=== PATIENT | female | born 1970 | race Caucasian/White ===

== ENCOUNTER 2017-10-25 12:37 | Emergency (ER) | payer BC ==
[2017-10-25 13:23] VITALS: RESP 18; TEMP 98
[2017-10-25] MEDS ORDERED: SODIUM CHLORIDE 0.9% 500 ML IV STA (13:34)
--- NOTE | 2017-10-25 14:18 | ED ---
General Adult HPI - General Chief complaint: Arrhythmia/Palpitations Stated complaint: Chest pain Time Seen by Provider: 10/25/17 13:34 Source: patient, RN notes reviewed, old records reviewed Mode of arrival: ambulatory Limitations: no limitations - History of Present Illness Initial comments: 47-year-old female history of SVT presenting for evaluation of palpitations. Patient states she was in SVT for approximately 2 hours while at work this morning. She does take metoprolol 25 mg twice daily. She is instructed take an additional tablet as needed for palpitations. She did not take this medication because she felt it may drop her blood pressure too low while she was at work. She did experience some left-sided chest pain with this episode. No nausea vomiting. No diaphoresis. No preceding symptoms. Patient is chest pain-free at the time of my evaluation. - Related Data Home Medications Medication Instructions Recorded Confirmed Gabapentin [Neurontin] 1,600 mg PO BID 01/25/14 10/25/17 Meclizine [Antivert] 12.5 mg PO BID 03/12/14 10/25/17 clomiPRAMINE [Anafranil] 100 mg PO HS 04/12/14 10/25/17 ARIPiprazole [Abilify] 10 mg PO DAILY 10/25/17 10/25/17 Metoprolol Succinate [Toprol XL] 25 mg PO BID 10/25/17 10/25/17 Ranitidine HCl [Zantac] 150 mg PO BID 10/25/17 10/25/17 Simvastatin [Zocor] 20 mg PO HS 10/25/17 10/25/17 Allergies Allergy/AdvReac Type Severity Reaction Status Date / Time Penicillins Allergy Rash/Hives Verified 10/25/17 13:57 codeine AdvReac Nausea & Verified 10/25/17 13:57 Vomiting escitalopram oxalate AdvReac headache Verified 10/25/17 13:57 [From Lexapro] sertraline HCl [From Zoloft] AdvReac Nausea & Verified 10/25/17 13:57 Vomiting venlafaxine HCl AdvReac headache Verified 10/25/17 13:57 [From Effexor] Review of Systems ROS Statement: Those systems with pertinent positive or pertinent negative responses have been documented in the HPI. ROS Other: All systems not noted in ROS Statement are negative. Past Medical History Past Medical History: Hyperlipidemia Additional Past Medical History / Comment(s): SVT History of Any Multi-Drug Resistant Organisms: None Reported Past Surgical History: Bariatric Surgery, Section, Cholecystectomy, Orthopedic Surgery, Tonsillectomy, Tubal Ligation Additional Past Surgical History / Comment(s): Gastroc. release in lt calf 2010 , sleeve gatrectomy 06/2014, right thumb tendon reconstruction Past Anesthesia/Blood Transfusion Reactions: No Reported Reaction Past Psychological History: Anxiety, Panic Disorder Smoking Status: Current every day smoker Past Alcohol Use History: Occasional Past Drug Use History: None Reported - Past Family History Mother Family Medical History: Myocardial Infarction ([place]) Father Family Medical History: No Reported History General Exam Limitations: no limitations General appearance: alert, in no apparent distress Head exam: Present: atraumatic, normocephalic Eye exam: Present: normal appearance, PERRL, EOMI ENT exam: Present: normal exam Neck exam: Present: normal inspection. Absent: tenderness, meningismus Respiratory exam: Present: normal lung sounds bilaterally. Absent: respiratory distress, wheezes Cardiovascular Exam: Present: regular rate, normal rhythm GI/Abdominal exam: Present: soft. Absent: distended, tenderness Extremities exam: Present: normal inspection, normal capillary refill. Absent: pedal edema, calf tenderness Neurological exam: Present: alert, oriented X3, CN II-XII intact. Absent: motor sensory deficit Psychiatric exam: Present: normal affect, normal mood Skin exam: Present: warm, dry, intact. Absent: cyanosis, diaphoretic Course Vital Signs 10/25/17 10/25/17 13:19 14:41 Temperature 98 F Pulse Rate 90 84 Respiratory 18 18 Rate Blood Pressure 106/70 112/55 O2 Sat by Pulse 100 96 Oximetry EKG Findings - EKG Comments: EKG Findings:: EKG normal sinus rhythm, ventricular rate 92, WI interval 134, QRS duration 86, QTC 442 Medical Decision Making - Medical Decision Making 47-year-old female presenting with multiple episodes of SVT throughout the day today. She does have known history of SVT and is on metoprolol. She is in normal sinus rhythm at the time of her initial EKG and while on the monitor in the emergency department. Workup is negative including CBC, CMP, negative troponin chest x-ray negative for any acute cardiopulmonary disease. Patient describes some left-sided chest pain with this episode. She is chest pain-free at the time my evaluation. She is offered observation for cardiology consultation and serial enzymes. She declines she prefers outpatient follow- up. She does have an appointment in 4 days she will maintain his appointment. Return with worsening or changing symptoms. - Lab Data Result diagrams: 10/25/17 14:00 10/25/17 14:00 Lab Results 10/25/17 10/25/17 10/25/17 Range/Units 14:00 14:00 14:00 WBC 9.1 (3.8-10.6) k/uL RBC 4.48 (3.80-5.40) m/uL Hgb 12.6 (11.4-16.0) gm/dL Hct 40.0 (34.0-46.0) % MCV 89.3 (80.0-100.0) fL MCH 28.1 (25.0-35.0) pg MCHC 31.5 (31.0-37.0) g/dL RDW 14.6 (11.5-15.5) % Plt Count 358 (150-450) k/uL Neutrophils % 56 % Lymphocytes % 33 % Monocytes % 7 % Eosinophils % 0 % Basophils % 0 % Neutrophils # 5.1 (1.3-7.7) k/uL Lymphocytes # 3.0 (1.0-4.8) k/uL Monocytes # 0.6 (0-1.0) k/uL Eosinophils # 0.0 (0-0.7) k/uL Basophils # 0.0 (0-0.2) k/uL PT (9.0-12.0) sec INR (<1.2) APTT (22.0-30.0) sec Sodium 137 (137-145) mmol/L Potassium 4.2 (3.5-5.1) mmol/L Chloride 106 (98-107) mmol/L Carbon Dioxide 21 L (22-30) mmol/L Anion Gap 10 mmol/L BUN 8 (7-17) mg/dL Creatinine 0.60 (0.52-1.04) mg/dL Est GFR (CKD-EPI)AfAm >90 (>60 ml/min/1.73 sqM) Est GFR (CKD-EPI)NonAf >90 (>60 ml/min/1.73 sqM) Glucose 147 H (74-99) mg/dL Calcium 9.5 (8.4-10.2) mg/dL Magnesium 1.6 (1.6-2.3) mg/dL Total Bilirubin 0.3 (0.2-1.3) mg/dL AST 33 (14-36) U/L ALT 28 (9-52) U/L Alkaline Phosphatase 58 (38-126) U/L Total Creatine Kinase 125 (30-135) U/L CK-MB (CK-2) 1.1 (0.0-2.4) ng/mL CK-MB (CK-2) Rel Index 0.9 Troponin I <0.012 (0.000-0.034) ng/mL Total Protein 6.7 (6.3-8.2) g/dL Albumin 4.2 (3.5-5.0) g/dL Urine Opiates Screen (NotDetected) Ur Oxycodone Screen (NotDetected) Urine Methadone Screen (NotDetected) Ur Propoxyphene Screen (NotDetected) Ur Barbiturates Screen (NotDetected) U Tricyclic Antidepress (NotDetected) Ur Phencyclidine Scrn (NotDetected) Ur Amphetamines Screen (NotDetected) U Methamphetamines Scrn (NotDetected) U Benzodiazepines Scrn (NotDetected) Urine Cocaine Screen (NotDetected) U Marijuana (THC) Screen (NotDetected) 10/25/17 10/25/17 Range/Units 14:00 14:00 WBC (3.8-10.6) k/uL RBC (3.80-5.40) m/uL Hgb (11.4-16.0) gm/dL Hct (34.0-46.0) % MCV (80.0-100.0) fL MCH (25.0-35.0) pg MCHC (31.0-37.0) g/dL RDW (11.5-15.5) % Plt Count (150-450) k/uL Neutrophils % % Lymphocytes % % Monocytes % % Eosinophils % % Basophils % % Neutrophils # (1.3-7.7) k/uL Lymphocytes # (1.0-4.8) k/uL Monocytes # (0-1.0) k/uL Eosinophils # (0-0.7) k/uL Basophils # (0-0.2) k/uL PT 9.5 (9.0-12.0) sec INR 1.0 (<1.2) APTT 24.0 (22.0-30.0) sec Sodium (137-145) mmol/L Potassium (3.5-5.1) mmol/L Chloride (98-107) mmol/L Carbon Dioxide (22-30) mmol/L Anion Gap mmol/L BUN (7-17) mg/dL Creatinine (0.52-1.04) mg/dL Est GFR (CKD-EPI)AfAm (>60 ml/min/1.73 sqM) Est GFR (CKD-EPI)NonAf (>60 ml/min/1.73 sqM) Glucose (74-99) mg/dL Calcium (8.4-10.2) mg/dL Magnesium (1.6-2.3) mg/dL Total Bilirubin (0.2-1.3) mg/dL AST (14-36) U/L ALT (9-52) U/L Alkaline Phosphatase (38-126) U/L Total Creatine Kinase (30-135) U/L CK-MB (CK-2) (0.0-2.4) ng/mL CK-MB (CK-2) Rel Index Troponin I (0.000-0.034) ng/mL Total Protein (6.3-8.2) g/dL Albumin (3.5-5.0) g/dL Urine Opiates Screen Not Detected (NotDetected) Ur Oxycodone Screen Not Detected (NotDetected) Urine Methadone Screen Not Detected (NotDetected) Ur Propoxyphene Screen Not Detected (NotDetected) Ur Barbiturates Screen Not Detected (NotDetected) U Tricyclic Antidepress Not Detected (NotDetected) Ur Phencyclidine Scrn Not Detected (NotDetected) Ur Amphetamines Screen Not Detected (NotDetected) U Methamphetamines Scrn Not Detected (NotDetected) U Benzodiazepines Scrn Not Detected (NotDetected) Urine Cocaine Screen Not Detected (NotDetected) U Marijuana (THC) Screen Not Detected (NotDetected) Disposition Clinical Impression: Supraventricular tachycardia Disposition: HOME SELF-CARE Condition: Good Instructions: Palpitations (ED), Supraventricular Tachycardia (ED) Is patient prescribed a controlled substance at d/c from ED?: No Referrals: Desirae Escamilla MD [Primary Care Provider] - 1-2 days Time of Disposition: 15:53
--- NOTE | 2017-10-25 14:21 | XR ---
EXAMINATION TYPE: XR chest 2V DATE OF EXAM: 10/25/2017 COMPARISON: Prior chest x-ray 06/06/2014 HISTORY: Dysrhythmia, chest pain TECHNIQUE: Frontal and lateral views of the chest are obtained. FINDINGS: There is no focal air space opacity, pleural effusion, or pneumothorax seen. The cardiac silhouette size is within normal limits. The osseous structures are intact. There are overlying car diac leads. Patient is rotated. Prominent lung volumes suggests possible underlying COPD. There is a prominent epicardial fat pad. IMPRESSION: No acute cardiopulmonary process.
[2017-10-25 14:26] LABS: Basophils % (A) 0 %; Eosinophils % (A) 0 %; HGB 12.6 gm/dL (11.4-16.0); Lymphocytes % (A) 33 %; MCH 28.1 pg (25.0-35.0); MCHC 31.5 g/dL (31.0-37.0); MCV 89.3 fL (80.0-100.0); Mean Platelet Volume 6.5; Monocytes # (A) 0.6 k/uL (0-1.0); Monocytes % (A) 7 %; Neutrophils # (A) 5.1 k/uL (1.3-7.7); Neutrophils % (A) 56 %; Platelet Count 358 k/uL (150-450); RBC 4.48 m/uL (3.80-5.40); RDW 14.6 % (11.5-15.5); WBC 9.1 k/uL (3.8-10.6)
[2017-10-25 14:41] LABS: Prothrombin Time 9.5 sec (9.0-12.0)
[2017-10-25 14:45] LABS: ALT 28 U/L (9-52); AST 33 U/L (14-36); Albumin 4.2 g/dL (3.5-5.0); Alkaline Phosphatase 58 U/L (38-126); Anion Gap 10 mmol/L; Blood Urea Nitrogen 8 mg/dL (7-17); Calcium 9.5 mg/dL (8.4-10.2); Carbon Dioxide 21 mmol/L (22-30); Chloride 106 mmol/L (98-107); Glucose 147 mg/dL (74-99); Magnesium 1.6 mg/dL (1.6-2.3); Potassium 4.2 mmol/L (3.5-5.1); Sodium 137 mmol/L (137-145); Total Bilirubin 0.3 mg/dL (0.2-1.3); Total Protein 6.7 g/dL (6.3-8.2)
[2017-10-25 14:50] LABS: Creatine Kinase 125 U/L (30-135)
[2017-10-25 15:02] LABS: Creatine Kinase MB 1.1 ng/mL (0.0-2.4); Troponin I <0.012 ng/mL (0.000-0.034)
[2017-10-25 15:14] LABS: Amphetamine Screen,Urine Not Detected (NotDetected); Barbiturate Screen,Urine Not Detected (NotDetected); Benzodiazepines Screen,Urine Not Detected (NotDetected); Cocaine Screen,Urine Not Detected (NotDetected); Methadone Screen, Urine Not Detected (NotDetected); Opiate Screen,Urine Not Detected (NotDetected); Oxycodone Screen, Urine Not Detected (NotDetected); Phencyclidine Screen,Urine Not Detected (NotDetected); Tricyclic Antidepressant,Urine Not Detected (NotDetected); Urn Cannabinoid Scrn Not Detected (NotDetected)
[2017-10-25 16:06] VITALS: BP 126/87; PULSE 89
== END 2017-10-25 16:05 | disposition home or self-care (01) ==
LOC: EC 12:37
DX: I47.1 Supraventricular tachycardia (principal); E78.5 Hyperlipidemia, unspecified; F17.200 Nicotine dependence, unspecified, uncomplicated; Z82.49 Family history of ischemic heart disease and other diseases of the circulatory system; Z79.899 Other long term (current) drug therapy; Z88.0 Allergy status to penicillin; Z88.5 Allergy status to narcotic agent; Z88.8 Allergy status to other drugs, medicaments and biological substances; Z53.29 Procedure and treatment not carried out because of patient's decision for other reasons
CPT/HCPCS: 36415; 71046; 80053; 80306; 82550; 82553; 83735; 84484; 85025; 85610; 85730; 93005; 96360; 96361; 99285

== ENCOUNTER 2018-03-10 08:44 | Emergency (ER) | payer BC, OTHER ==
[2018-03-10 08:50] VITALS: RESP 18; TEMP 97.9
[2018-03-10] MEDS ORDERED: ASPIRIN 81 MG PO STA (08:52)
--- NOTE | 2018-03-10 09:17 | ED ---
Chest Pain HPI - General Chief Complaint: Chest Pain Stated Complaint: chest pain Time Seen by Provider: 03/10/18 08:52 Source: patient, RN notes reviewed Mode of arrival: ambulatory Limitations: no limitations - History of Present Illness Initial Comments: This a 47-year-old female sent emergency Department chief complaint of chest pressure, squeezing sensation. Patient states it started this morning. Patient states when she takes a deep inspiration she feels some squeezing her chest. Patient states that is not at rest. Patient denies any recent blood clots, PEs. Patient denies any recent long distance traveling. She states she has a history of SVT takes metoprolol daily prescribed by her PCP. Patient states she has seen cardiology in the past. She denies any headache, dizziness , nausea, vomiting, arm pain, jaw pain. She has no history of hyperlipidemia, diabetes, prior cardiac stenting. Patient states that she does have some family history. - Related Data Home Medications Medication Instructions Recorded Confirmed Gabapentin [Neurontin] 1,600 mg PO BID 01/25/14 03/10/18 Meclizine [Antivert] 12.5 mg PO DAILY 03/12/14 03/10/18 Metoprolol Succinate [Toprol XL] 25 mg PO DAILY 10/25/17 03/10/18 ARIPiprazole [Abilify] 20 mg PO DAILY 03/10/18 03/10/18 Allergies Allergy/AdvReac Type Severity Reaction Status Date / Time Penicillins Allergy Rash/Hives Verified 03/10/18 10:02 codeine AdvReac Nausea & Verified 03/10/18 10:02 Vomiting escitalopram oxalate AdvReac headache Verified 03/10/18 10:02 [From Lexapro] sertraline HCl [From Zoloft] AdvReac Nausea & Verified 03/10/18 10:02 Vomiting venlafaxine HCl AdvReac headache Verified 03/10/18 10:02 [From Effexor] Review of Systems ROS Statement: Those systems with pertinent positive or pertinent negative responses have been documented in the HPI. ROS Other: All systems not noted in ROS Statement are negative. EKG Findings - EKG Comments: EKG Findings:: EKG performed at 9:17 normal sinus rhythm with rate of 80 ID 118 QRS 80 QT/QTC 382/440 Past Medical History Past Medical History: Hyperlipidemia Additional Past Medical History / Comment(s): SVT History of Any Multi-Drug Resistant Organisms: None Reported Past Surgical History: Bariatric Surgery, Section, Cholecystectomy, Orthopedic Surgery, Tonsillectomy, Tubal Ligation Additional Past Surgical History / Comment(s): Gastroc. release in lt calf 2010 , sleeve gatrectomy 06/2014, right thumb tendon reconstruction Past Anesthesia/Blood Transfusion Reactions: No Reported Reaction Past Psychological History: Anxiety, Panic Disorder Smoking Status: Current every day smoker Past Alcohol Use History: Occasional Past Drug Use History: None Reported - Past Family History Mother Family Medical History: Myocardial Infarction ([place]) Father Family Medical History: No Reported History General Exam Limitations: no limitations General appearance: alert, in no apparent distress Head exam: Present: atraumatic, normocephalic, normal inspection Neck exam: Present: normal inspection, full ROM. Absent: tenderness, meningismus, lymphadenopathy Respiratory exam: Present: normal lung sounds bilaterally. Absent: respiratory distress, wheezes, rales, rhonchi, stridor Cardiovascular Exam: Present: regular rate, normal rhythm, normal heart sounds. Absent: systolic murmur, diastolic murmur, rubs, gallop, clicks GI/Abdominal exam: Present: soft, normal bowel sounds. Absent: distended, tenderness, guarding, rebound, rigid Neurological exam: Present: alert, oriented X3, CN II-XII intact Skin exam: Present: warm, dry, intact, normal color. 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 Pain started this morning worse with deep inspiration. Patient lab work and EKG and chest x-ray. Remaining is unremarkable. Patient negative d-dimer. EKG was normal sinus rhythm. Did explain that labs and EKG were normal at this time though patient should be admitted for cardiac rule out including repeat troponin, cardiology evaluation. Patient refuses admission understands that she may have some underlying cardiac disease. Patient does understand and states that she will not be admitted. Disposition Clinical Impression: Atypical chest pain, Pleurisy Disposition: HOME SELF-CARE Condition: Stable Instructions: Chest Pain (ED) Additional Instructions: Please return to the Emergency Department if symptoms worsen or any other concerns. Is patient prescribed a controlled substance at d/c from ED?: No Referrals: Desirae Escamilla MD [Primary Care Provider] - 1-2 days Time of Disposition: 11:17
[2018-03-10 09:30] VITALS: PULSE 82
--- NOTE | 2018-03-10 09:47 | XR ---
EXAMINATION TYPE: XR chest 2V DATE OF EXAM: 03/10/2018 COMPARISON: 10/25/2017 TECHNIQUE: PA and lateral views submitted. HISTORY: Chest pain FINDINGS: The lungs are clear and there is no pneumothorax, pleural effusion, or focal pneumonia. Prominent p ericardial fat pad on the right noted. No overt failure. Arthropathy of the shoulders. Hyperinflation suggests COPD. Surgical clips in the abdomen noted. Hypertrophic change of the vertebral column. IMPRESSION: 1. No acute process.
[2018-03-10 10:14] LABS: Basophils % (A) 1 %; Eosinophils # (A) 0.2 k/uL (0-0.7); Eosinophils % (A) 2 %; HCT 37.4 % (34.0-46.0); HGB 12.1 gm/dL (11.4-16.0); Lymphocytes # (A) 2.8 k/uL (1.0-4.8); Lymphocytes % (A) 37 %; MCH 28.4 pg (25.0-35.0); MCHC 32.3 g/dL (31.0-37.0); Mean Platelet Volume 6.3; Monocytes # (A) 0.5 k/uL (0-1.0); Monocytes % (A) 7 %; Neutrophils # (A) 3.9 k/uL (1.3-7.7); Neutrophils % (A) 51 %; Platelet Count 383 k/uL (150-450); RBC 4.24 m/uL (3.80-5.40); RDW 14.9 % (11.5-15.5); WBC 7.6 k/uL (3.8-10.6)
[2018-03-10 10:25] LABS: ALT 24 U/L (9-52); AST 28 U/L (14-36); Albumin 3.7 g/dL (3.5-5.0); Alkaline Phosphatase 57 U/L (38-126); Anion Gap 5 mmol/L; Blood Urea Nitrogen 3 mg/dL (7-17); Carbon Dioxide 29 mmol/L (22-30); Chloride 101 mmol/L (98-107); Glucose 79 mg/dL (74-99); Magnesium 1.8 mg/dL (1.6-2.3); Potassium 4.8 mmol/L (3.5-5.1); Sodium 135 mmol/L (137-145); Total Bilirubin 0.3 mg/dL (0.2-1.3); Total Protein 6.3 g/dL (6.3-8.2)
[2018-03-10 10:31] LABS: D-Dimer 0.3 mg/L FEU (<0.60); INR 0.9 (<1.2); Partial Thromboplastin Time 25.3 sec (22.0-30.0); Prothrombin Time 9.4 sec (9.0-12.0)
[2018-03-10 10:54] LABS: Creatine Kinase 107 U/L (30-135)
[2018-03-10 11:07] LABS: Creatine Kinase MB 1.7 ng/mL (0.0-2.4); Troponin I <0.012 ng/mL (0.000-0.034)
[2018-03-10 11:38] VITALS: BP 124/78
== END 2018-03-10 11:24 | disposition home or self-care (01) ==
LOC: EC 08:44
DX: R07.89 Other chest pain (principal); R09.1 Pleurisy; F41.0 Panic disorder [episodic paroxysmal anxiety]; F17.200 Nicotine dependence, unspecified, uncomplicated; Z98.84 Bariatric surgery status; Z79.899 Other long term (current) drug therapy; Z88.0 Allergy status to penicillin; Z88.5 Allergy status to narcotic agent; Z88.8 Allergy status to other drugs, medicaments and biological substances
CPT/HCPCS: 36415; 71046; 80053; 82550; 82553; 83735; 84484; 85025; 85379; 85610; 85730; 93005; 99285

== ENCOUNTER 2019-01-25 09:57 | Emergency (ER) | payer BC, OTHER ==
--- NOTE | 2019-01-25 11:22 | ED ---
Chest Pain HPI - General Chief Complaint: Chest Pain Stated Complaint: chest pain Time Seen by Provider: 01/25/19 10:20 Source: patient, RN notes reviewed Mode of arrival: ambulatory Limitations: no limitations - History of Present Illness Initial Comments: This is a 48-year-old female who presents with complaints of chest pain is started this morning. She states it was sharp in nature 09/28 severity now is about 0 she points her left chest wall. He states it started about 6:45 AM no new lifting no new symptoms like cough fevers chills sweats. She does have a history of SVT she did monitor her heart rate was going between 95 bpm and 130 bpm. Currently no other modifying factor she did however state that she did feel some irregularity in her heart beats. MD Complaint: chest pain - Related Data Home Medications Medication Instructions Recorded Confirmed Gabapentin [Neurontin] 800 mg PO TID 01/25/14 01/25/19 Meclizine [Antivert] 12.5 mg PO DAILY 03/12/14 01/25/19 Metoprolol Succinate [Toprol XL] 25 mg PO DAILY 10/25/17 01/25/19 ARIPiprazole [Abilify] 10 mg PO DAILY 01/25/19 01/25/19 Ferrous Sulfate [Iron (65 MG 325 mg PO DAILY 01/25/19 01/25/19 Elemental)] Simvastatin [Zocor] 20 mg PO HS 01/25/19 01/25/19 clomiPRAMINE [Anafranil] 100 mg PO HS 01/25/19 01/25/19 Previous Rx's Medication Instructions Recorded Ibuprofen 800 mg PO Q6HR PRN #20 tablet 01/25/19 Allergies Allergy/AdvReac Type Severity Reaction Status Date / Time Penicillins Allergy Rash/Hives Verified 01/25/19 11:49 codeine AdvReac Nausea & Verified 01/25/19 11:49 Vomiting escitalopram oxalate AdvReac headache Verified 01/25/19 11:49 [From Lexapro] sertraline HCl [From Zoloft] AdvReac Nausea & Verified 01/25/19 11:49 Vomiting venlafaxine HCl AdvReac headache Verified 01/25/19 11:49 [From Effexor] Review of Systems ROS Statement: Those systems with pertinent positive or pertinent negative responses have been documented in the HPI. ROS Other: All systems not noted in ROS Statement are negative. EKG Findings - EKG Results: EKG: interpreted by CARLYND, sinus rhythm (Normal sinus rhythm a 77 appear interval 1:30 QRS duration 78 QT since QTC 380/[address]-T wave changes) Past Medical History Past Medical History: Hyperlipidemia Additional Past Medical History / Comment(s): SVT History of Any Multi-Drug Resistant Organisms: None Reported Past Surgical History: Bariatric Surgery, Section, Cholecystectomy, Orthopedic Surgery, Tonsillectomy, Tubal Ligation Additional Past Surgical History / Comment(s): Gastroc. release in lt calf 2010, sleeve gatrectomy 06/2014, right thumb tendon reconstruction Past Anesthesia/Blood Transfusion Reactions: No Reported Reaction Past Psychological History: Anxiety, Panic Disorder Smoking Status: Current every day smoker Past Alcohol Use History: Occasional Past Drug Use History: Marijuana - Past Family History Mother Family Medical History: Myocardial Infarction ([place]) Father Family Medical History: No Reported History General Exam - General Exam Comments Initial Comments: This is a well-developed well-nourished awake alert oriented 3 female Limitations: no limitations General appearance: alert, in no apparent distress Head exam: Present: atraumatic, normocephalic, normal inspection Eye exam: Present: normal appearance, PERRL, EOMI. Absent: scleral icterus, conjunctival injection, periorbital swelling ENT exam: Present: normal exam, mucous membranes moist Neck exam: Present: normal inspection. Absent: tenderness, meningismus, lymphadenopathy Respiratory exam: Present: normal lung sounds bilaterally, chest wall tenderness (Tenderness palpation along the left costochondral costal sternal margins no step-off or crepitation). Absent: respiratory distress, wheezes, rales, rhonchi, stridor Cardiovascular Exam: Present: regular rate, normal rhythm, normal heart sounds. Absent: systolic murmur, diastolic murmur, rubs, gallop, clicks GI/Abdominal exam: Present: soft, normal bowel sounds. Absent: distended, tenderness, guarding, rebound, rigid Extremities exam: Present: normal inspection, full ROM, normal capillary refill. Absent: tenderness, pedal edema, joint swelling, calf tenderness Back exam: Present: normal inspection Neurological exam: Present: alert, oriented X3, CN II-XII intact Psychiatric exam: Present: normal affect, normal mood Skin exam: Present: warm, dry, intact, normal color. Absent: rash Course Vital Signs 01/25/19 01/25/19 10:02 12:12 Temperature 97.8 F Pulse Rate 88 89 Respiratory 18 16 Rate Blood Pressure 147/89 129/58 O2 Sat by Pulse 100 100 Oximetry Procedures - Smoking Cessation Time Spent Discussing Smoking Cessation w/Patient (Minutes): 3 Patient Acknowledges Need for Cessation: Yes Chest Pain MDM - MDM Reevaluation patient she has no further pain x-rays are negative workup thus far is negative for acute findings the presentation is consistent with chest wall pain/costochondritis. She does states she's had this before. Patient will be discharged on nonsteroidals is a follow-up with her doctor as needed and return when necessary she was encouraged to stop smoking I did fill out a return to work slip for tomorrow. Disposition Clinical Impression: Costochondritis, Chest wall syndrome, Smoking Disposition: HOME SELF-CARE Condition: Good Instructions (If sedation given, give patient instructions): Costochondritis (ED) Additional Instructions: Medication prescriptions sent to your preferred [facility] pharmacy Prescriptions: Ibuprofen 800 mg PO Q6HR PRN #20 tablet PRN Reason: Pain Is patient prescribed a controlled substance at d/c from ED?: No Referrals: Desirae Escamilla MD [Primary Care Provider] - 1-2 days
--- NOTE | 2019-01-25 11:23 | XR ---
EXAMINATION TYPE: XR chest 2V DATE OF EXAM: 01/25/2019 COMPARISON: 03/10/2018 HISTORY: Chest pain TECHNIQUE: Frontal and lateral views of the chest are obtained. FINDINGS: There is no focal air space opacity, pleural effusion, or pneumothorax seen. The cardiac silhouette size is within normal limits. The osseous structures are intact. Minimal multilevel dege nerative changes of the spine. IMPRESSION: No acute cardiopulmonary process.
[2019-01-25 11:41] LABS: Anisocytosis Slight; Basophils # (A) 0.1 k/uL (0-0.2); Basophils % (A) 1 %; Eosinophils # (A) 0.2 k/uL (0-0.7); Eosinophils % (A) 3 %; HCT 38.7 % (34.0-46.0); HGB 12.5 gm/dL (11.4-16.0); Lymphocytes # (A) 2.8 k/uL (1.0-4.8); Lymphocytes % (A) 41 %; MCH 28.2 pg (25.0-35.0); MCHC 32.3 g/dL (31.0-37.0); MCV 87.3 fL (80.0-100.0); Mean Platelet Volume 5.9; Monocytes # (A) 0.3 k/uL (0-1.0); Monocytes % (A) 5 %; Neutrophils # (A) 3.3 k/uL (1.3-7.7); Neutrophils % (A) 48 %; Platelet Count 342 k/uL (150-450); RBC 4.43 m/uL (3.80-5.40); RDW 17.7 % (11.5-15.5); WBC 6.8 k/uL (3.8-10.6)
[2019-01-25 11:57] LABS: D-Dimer 0.26 mg/L FEU (<0.60); INR 0.9 (<1.2); Partial Thromboplastin Time 25.1 sec (22.0-30.0); Prothrombin Time 9.5 sec (9.0-12.0)
[2019-01-25 11:59] LABS: ALT 30 U/L (9-52); AST 29 U/L (14-36); African American GFR (CKD) >90 (>60 ml/min/1.73 sqM); Albumin 4.3 g/dL (3.5-5.0); Alkaline Phosphatase 69 U/L (38-126); Blood Urea Nitrogen 6 mg/dL (7-17); Calcium 9.8 mg/dL (8.4-10.2); Carbon Dioxide 29 mmol/L (22-30); Glucose 89 mg/dL (74-99); Total Bilirubin 0.3 mg/dL (0.2-1.3); Total Protein 6.8 g/dL (6.3-8.2)
[2019-01-25 12:02] LABS: Anion Gap 7 mmol/L; Chloride 100 mmol/L (98-107); Creatine Kinase 128 U/L (30-135); Magnesium 1.7 mg/dL (1.6-2.3); Potassium 4.7 mmol/L (3.5-5.1); Sodium 136 mmol/L (137-145)
[2019-01-25 13:25] VITALS: BP 128/72; PULSE 72; RESP 18; TEMP 98.3
== END 2019-01-25 13:35 | disposition home or self-care (01) ==
LOC: EC 09:57
DX: M94.0 Chondrocostal junction syndrome [Tietze] (principal); Z71.6 Tobacco abuse counseling; E78.5 Hyperlipidemia, unspecified; F41.0 Panic disorder [episodic paroxysmal anxiety]; F17.200 Nicotine dependence, unspecified, uncomplicated; Z88.0 Allergy status to penicillin; Z88.5 Allergy status to narcotic agent; Z88.8 Allergy status to other drugs, medicaments and biological substances; Z79.899 Other long term (current) drug therapy; Z86.79 Personal history of other diseases of the circulatory system; Z82.49 Family history of ischemic heart disease and other diseases of the circulatory system
CPT/HCPCS: 36415; 71046; 80053; 82550; 83690; 83735; 83880; 84484; 85025; 85379; 85610; 85730; 93005; 99285; 99406

== ENCOUNTER → 2019-12-21 | Outpatient (CLI) | payer BC ==
[2019-12-21 12:09] LABS: HCT 43.8 % (34.0-46.0); HGB 13.9 gm/dL (11.4-16.0); MCHC 31.6 g/dL (31.0-37.0); Mean Platelet Volume 6.9; Platelet Count 413 k/uL (150-450); RBC 4.61 m/uL (3.80-5.40); RDW 14.2 % (11.5-15.5); WBC 8.9 k/uL (3.8-10.6)
[2019-12-21 16:52] LABS: Ferritin 37.2 ng/mL (10.0-291.0)
[2019-12-21 16:54] LABS: Folate, Serum 5.6 ng/mL
[2019-12-21 17:45] LABS: Hemoglobin A1C 5.9 % (4.0-6.0)
[2019-12-21 20:58] LABS: INR 0.93 (0.90-1.11); Partial Thromboplastin Time 29.8 sec (24.7-29.9)
[2019-12-21 21:47] LABS: % Iron Saturation 38.51 (12.00-45.00); African American GFR (CKD) 123.2 (60.0-200.0); Albumin 4.9 g/dL (3.80-4.90); Albumin/Globulin Ratio 2.45 (1.60-3.17); Anion Gap 8.1 mmol/L (4.00-12.00); BUN/Creat Ratio 11.67 Ratio (12.00-20.00); Calcium 9.6 mg/dL (8.7-10.3); Carbon Dioxide 25.9 mmol/L (21.6-31.8); Chol/HDL Ratio 4.03; LDL Cholesterol,Calculated 148.4 mg/dL (0.0-131.0); Magnesium 1.8 mg/dL (1.5-2.4); Non-African American GFR(CKD) 106.3 (60.0-200.0); Phosphorus 4.1 mg/dL (2.4-5.1); Potassium 4.7 mmol/L (3.5-5.5); Total Bilirubin 0.3 mg/dL (0.2-1.2); Total Protein 6.9 g/dL (6.2-8.2); VLDL Calculation 57.6 mg/dL (5.00-40.00)
[2019-12-22 13:32] LABS: Vit B1(Thiamine) 42 ug/L (38-122)
[2019-12-22 14:08] LABS: Zinc, Serum 84 ug/dL (60-130)
== END | disposition home or self-care (01) ==
LOC: LABWHC1 08:39
PROVIDERS: ATTEND Surgery Plastic and Reconstructive Surgery
DX: E89.1 Postprocedural hypoinsulinemia (principal); K90.89 Other intestinal malabsorption; D50.8 Other iron deficiency anemias; K74.1 Hepatic sclerosis; N19 Unspecified kidney failure; K50.90 Crohn's disease, unspecified, without complications; E55.9 Vitamin D deficiency, unspecified
CPT/HCPCS: 36415; 80053; 80061; 82306; 82525; 82607; 82728; 82746; 83036; 83540; 83550; 83735; 83970; 84100; 84134; 84255; 84425; 84443; 84590; 84630; 85027; 85610; 85730

== ENCOUNTER → 2020-04-03 | Outpatient (CLI) | payer BC ==
[2020-04-03 08:23] VITALS: BP 155/70; PULSE 101; RESP 18; TEMP 98.1
--- NOTE | 2020-04-03 09:03 | P.PAINCN ---
History of Present Illness - Reason for Consult Consult date: 04/03/20 - History of Present Illness This is 49 years old female with 8 month history of severe low back pain, started after she was doing heavy lifting at work , ( injury was not reported), from that time she continued to have severe low back pain with radiation to the right groin and right lower extremity, she denies any motor or sensory deficit she denies any fever or night sweats which she denies any change in bowel movement or urination, she reported that the pain mainly in the low back area , localized in the right side with radiation to the left, she was [facility] and she had 3 epidural steroid injection without any benefit, she continued to have severe low back pain, she is currently on Neurontin 800 mg 3 times a day and [place] 7.5 mg when necessary she denies any side effect of the medication and she reported that the medication is not helping enough to control the pain Past Medical History Past Medical History: Cancer, Hyperlipidemia, Musculoskeletal Disorder Additional Past Medical History / Comment(s): SVT, skin cancer, IBS History of Any Multi-Drug Resistant Organisms: None Reported Past Surgical History: Bariatric Surgery, Section, Cholecystectomy, Orthopedic Surgery, Tonsillectomy, Tubal Ligation Additional Past Surgical History / Comment(s): Gastroc. release in lt calf 2010, sleeve gastrectomy 06/2014, right thumb tendon reconstruction Past Anesthesia/Blood Transfusion Reactions: Motion Sickness, Postoperative Nausea & Vomiting (PONV) Past Psychological History: Anxiety, Panic Disorder Smoking Status: Current every day smoker Past Alcohol Use History: Heavy Additional Past Alcohol Use History / Comment(s): <ppd off & on for 30 yrs., >7 drinks per week Past Drug Use History: Marijuana Additional Drug Use History / Comment(s): rare use - Past Family History Mother Family Medical History: Myocardial Infarction ([place]) Father Family Medical History: No Reported History Medications and Allergies Home Medications Medication Instructions Recorded Confirmed Type Gabapentin [Neurontin] 800 mg PO TID 01/25/14 03/29/20 History Meclizine [Antivert] 12.5 mg PO DAILY 03/12/14 03/29/20 History Metoprolol Succinate [Toprol XL] 25 mg PO DAILY 10/25/17 03/29/20 History ARIPiprazole [Abilify] 10 mg PO DAILY 01/25/19 03/29/20 History Ferrous Sulfate [Iron (65 MG 325 mg PO DAILY 01/25/19 03/29/20 History Elemental)] clomiPRAMINE [Anafranil] 100 mg PO HS 01/25/19 03/29/20 History Atorvastatin [Lipitor] 20 mg PO DAILY 03/29/20 03/29/20 History Hydrocodone/Acetaminophen [Vicodin 1 tab PO BID PRN 03/29/20 03/29/20 History ES 7.5-300 mg] Allergies Allergy/AdvReac Type Severity Reaction Status Date / Time Penicillins Allergy Rash/Hives Verified 03/29/20 14:53 codeine AdvReac Nausea & Verified 03/29/20 14:53 Vomiting escitalopram oxalate AdvReac headache Verified 03/29/20 14:53 [From Lexapro] sertraline HCl [From Zoloft] AdvReac Nausea & Verified 03/29/20 14:53 Vomiting venlafaxine HCl AdvReac headache Verified 03/29/20 14:53 [From Effexor] Physical Exam Vitals: Vital Signs Temp Pulse Resp BP Pulse Ox 04/03/20 08:17 98.1 F 101 H 18 155/70 99 Physical Examinations : -Constitutiona : Cooperative , not in acute distress . -HEENT : nech : supple , no Lymphadenopathy , normal thyroid size . : eyes : no ptosis , no icterus, no photophobia . - neurologic : Cranial nerve II to XII intact , no focal neurological deffecit . -psychatric : alert , oriented X 3 , appropriate affect , intact judgment and insight . -Lymphatic : no Lymphadenopathy . - musculoskeltal : Lumber spine moter stegnth lower extremities ,thigh and legs 5/5 Right side , 5/5 Left side deep tendon reflexes : normal Knee Jerk , normal ankle Jerk lumber facet Loading Test =positive Right , positive Left Range of motion of the lumbar spine Flexion 30 degrees, extension 10 degrees strait leg raising test = positive at 30 degree on the right side and is negative on the left side Fabere test= positive Right , and positive LT . tenderness over the Sacroiliac joint on the Right , and Left sides Gaenslen test= positive right ,and positive left . Seated flexion test= positive right ,and positive Left . Flexion extension and rotation of the right hip associated with severe pain Results Comments: MRI of the lumbar spine= multilevel lumbar degenerative disc disease, lumbar facet arthropathy and moderate foraminal stenosis Assessment and Plan Plan: Assessment and plan=1-lumbar spondylosis with lumbar facet arthropathy without myelopathy. 2-sacroiliitis. 3-right hip arthralgia. 4-lumbar degenerative disc disease. Patient had lumbar epidural steroid injections 3 without any significant benefit. she is good candidate to diagnostic medial branch block lumbar area L3, L4, L5 (for the facet joints at L4 5 and L5-S1 ) Patient should continue her current medication as prescribed by her primary care. Patient given referral for evaluation by orthopedic surgeon regarding her right hip pain Time with Patient: Greater than 30 PQRS Measure Charge Sheet Measure #130: Documentation of Current Meds in Medical Chart: Patient's medications documented in chart Measure #226: Tobacco Use: Screen & Cessation Intervention: Pt screened for tobacco use AND intervention given Measure #111: Pneumonia Vaccination: Pneumococcal vaccine NOT administered or previously given Measure #47: Advance Care Plan: Advance care planning discussed & documented, pt chose/unable to give Measure #412: Opioid Treatment Agreement: No documentation of signed opioid treatment agreement Measure #408: Opioid Therapy Follow-up Evaluation: Patient had NO f/u eval minimum every 3 months during opioid therapy Measure #317: Preventitive Care & Scrn High Bld Press & F/U: Pre-hypertensive or hypertensive BP documented, pt will f/u with PCP Measure #128: Body Mass Index (BMI) Screening & Follow-up: BMI documented ABOVE normal parameters - f/u documented Measure #131: Pain Assessment & Follow-up: Pain positive & plan documented, Follow-up scheduled Measure #431: Unhealthy Alcohol Use Preventative Care & Scrn: Patient not identified as an unhealthy alcohol user PQRS Narrative: Smoking Status Current every day smoker Blood Pressure 155/70 Pain Intensity [Lower Back] 8 Scale Used Numeric (1 - 10) Hx Alcohol Use (MH) Yes Home Medications: Ambulatory Orders Gabapentin [Neurontin] 800 mg PO TID 01/25/14 Meclizine [Antivert] 12.5 mg PO DAILY 03/12/14 Metoprolol Succinate [Toprol XL] 25 mg PO DAILY 10/25/17 ARIPiprazole [Abilify] 10 mg PO DAILY 01/25/19 Ferrous Sulfate [Iron (65 MG Elemental)] 325 mg PO DAILY 01/25/19 clomiPRAMINE [Anafranil] 100 mg PO HS 01/25/19 Atorvastatin [Lipitor] 20 mg PO DAILY 03/29/20 Hydrocodone/Acetaminophen [Vicodin ES 7.5-300 mg] 1 tab PO BID PRN 03/29/20
== END | disposition home or self-care (01) ==
LOC: PNWHC3 07:57
PROVIDERS: ATTEND Specialist
DX: M48.061 Spinal stenosis, lumbar region without neurogenic claudication (principal); M51.36 Other intervertebral disc degeneration, lumbar region; M46.1 Sacroiliitis, not elsewhere classified; M25.551 Pain in right hip; F17.200 Nicotine dependence, unspecified, uncomplicated; Z79.891 Long term (current) use of opiate analgesic; Z79.899 Other long term (current) drug therapy; Z88.0 Allergy status to penicillin; Z88.8 Allergy status to other drugs, medicaments and biological substances; Z88.5 Allergy status to narcotic agent
CPT/HCPCS: 99211

== ENCOUNTER → 2020-10-02 | Outpatient (CLI) | payer BC ==
[2020-10-02 08:25] VITALS: BP 162/81; PULSE 89; RESP 18; TEMP 98.1
--- NOTE | 2020-10-02 08:52 | P.PN ---
Subjective Progress Note Date: 10/02/20 This is 49 years old female with 8 month history of severe low back pain, started after she was doing heavy lifting at work , ( injury was not reported), from that time she continued to have severe low back pain with radiation to the right groin and right lower extremity, and patient was referred a few months ago to Surgeon for evaluation regarding her right hip pain, she was evaluated and there was no recommendation for any surgical intervention on her right hip, she'll currently complaining of severe low back pain with radiation to the left hip area and left buttock, into the left lower extremity above the knee, she is currently on Neurontin 800 mg 3 times a day and [place] 7.5 mg when necessary she denies any side effect of the medication and she reported that the medication is not helping enough to control the pain Physical Examinations : -Constitutiona : Cooperative , not in acute distress . -HEENT : nech : supple , no Lymphadenopathy , normal thyroid size . : eyes : no ptosis , no icterus, no photophobia . - neurologic : Cranial nerve II to XII intact , no focal neurological deffecit . -psychatric : alert , oriented X 3 , appropriate affect , intact judgment and insight . -Lymphatic : no Lymphadenopathy . - musculoskeltal : Lumber spine moter stegnth lower extremities ,thigh and legs 5/5 Right side , 5/5 Left side deep tendon reflexes : normal Knee Jerk , normal ankle Jerk lumber facet Loading Test =positive Right , positive Left Range of motion of the lumbar spine Flexion 30 degrees, extension 10 degrees strait leg raising test = positive at 30 degree on the right side and is negative on the left side Fabere test= positive Right , and positive LT . tenderness over the Sacroiliac joinon the Left sides Gaenslen test= positive left . Seated flexion test= positive Left . Severe tenderness over the left trochanteric bursa Results Comments: MRI of the lumbar spine= multilevel lumbar degenerative disc disease, lumbar facet arthropathy and moderate foraminal stenosis Assessment and Plan Plan: Assessment and plan=1-lumbar spondylosis with lumbar facet arthropathy without myelopathy. 2-left sacroiliitis. 3-left trochanteric bursitis 4-lumbar degenerative disc disease. She could benefit from left trochanteric bursa steroid injection, and left sacroiliac joint steroid injection under fluoroscopy guidance. - PQRS measures = - Patient's medications are documented in the chart. -Tobacco use is positive, and counseling.Given. -Patient's has not received pneumococcal vaccine. -Advanced care planning discussed, patient not eligible. -Opiate contract not signed. -Pain positive and follow-up visit/procedure is scheduled. -Patient's blood pressure measured [162/81 ] , and documented in the record ,and patient will follow up with the primary care. -Patient's weight was measured and body mass index [ ] above the,normal limits and counseling was done. and patient instructed to follow-up with the primary care physician. -Patient was not identified as an unhealthy alcohol user Objective - Vital Signs Vital signs: Vital Signs Temp 98.1 F 10/02/20 08:20 Pulse 89 10/02/20 08:20 Resp 18 10/02/20 08:20 BP 162/81 10/02/20 08:20 Pulse Ox 100 10/02/20 08:20
== END ==
LOC: PNWHC3 08:07
PROVIDERS: ATTEND Specialist
DX: M47.816 Spondylosis without myelopathy or radiculopathy, lumbar region (principal); M51.36 Other intervertebral disc degeneration, lumbar region; M46.1 Sacroiliitis, not elsewhere classified; M70.62 Trochanteric bursitis, left hip
CPT/HCPCS: 99211

== ENCOUNTER 2020-11-12 09:19 | Day surgery (SDC) | payer BC ==
[2020-11-07 12:15] VITALS: BMI 32.1
[~2020-11-12 09:19] MED LIST: LACTATED RINGERS 1,000 ML IV SCH
[2020-11-12 09:48] VITALS: RESP 16; TEMP 97
[2020-11-12] MEDS ORDERED: LACTATED RINGERS 1,000 ML IV ONE (09:50)
[2020-11-12] MEDS ORDERED: ONDANSETRON 4 MG/2 ML VIAL ONE (09:59)
[2020-11-12] MEDS ORDERED: ONDANSETRON 4 MG/2 ML VIAL IVP ONE (10:00)
[2020-11-12] MEDS ORDERED: TRIAMCINOLONE ACETONIDE 40 MG/ML 1 ML VIAL ONE (10:19)
[2020-11-12] MEDS ORDERED: ROPIVACAINE 5MG/ML 20ML VIAL ONE (10:19)
[2020-11-12] MEDS ORDERED: MIDAZOLAM 2 MG/2 ML VIAL ONE (10:19)
--- NOTE | 2020-11-12 10:36 | P.PCN ---
Date of Procedure: 11/12/20 Surgeon: Moustapha Quiroz Description of Procedure: Pre OP diagnoses= Lt greater trochanteric bursitis . Postoperative diagnosis= Lt greater trochanteric bursitis. Operation=Lt trochanteric bursa steroid injection under fluoroscopy guidance. Anesthesia= local with lidocaine 1%. And IV moderate conscious sedation with 2 mg of Versed Complications= none . Risks and benefits of the procedure including but not limited to risk of infection and bleeding and not complete pain relief and ALLERGIC reaction to medication discussed with the patient and the alternative also discussed with the patient and she agreed with proceding .Patient was taken to the operating room placed in supine position , standard monitors applied , the hip area was prepped with chlorhexidine , and under sterile technique using 25-gauge needle for skin and subcutaneous tissue infiltration and 22-gauge Quincke-type spinal needle advanced slowly under fluoroscopy to contact bone of the greater trochanter. Needle placement was confirmed with AP and lateral view . 5ML of ropivacaine 0.5% mixed with 40 mg of Kenalog injected after negative aspiration . there was no paresthesia during the injection ,needle removed and a dressing applied.Patient tolerated the procedure well without any complication and she will follow up with the pain clinic in a few weeks . Patient discharged home in stable condition. The picture of needle placement was safe to the fluoroscopy was seen in the radiology department. A picture of needle placement was saved to the fluoroscopy machine in the radiology department.
[2020-11-12] MEDS ORDERED: IV FLUID CONTINUATION 500 ML IV ONE (10:38)
[2020-11-12 10:56] VITALS: BP 132/81; PULSE 85
--- NOTE | 2020-11-12 14:22 | FL ---
Fluoroscopy HISTORY: Pain 8 seconds fluoroscopy time supplied to the referring clinician. 2 intraoperative C-arm images docume nt the procedure. See dictated report from anesthesia.
== END 2020-11-12 11:00 | disposition home or self-care (01) ==
LOC: ORPAIN 09:19
PROVIDERS: ATTEND Anesthesiology
DX: M70.62 Trochanteric bursitis, left hip (principal); Z88.0 Allergy status to penicillin
CPT/HCPCS: 20610; 77002; J2250; J3301; J2405; J2795; 99152

== ENCOUNTER → 2020-12-09 | Outpatient (CLI) | payer BC ==
[2020-12-09 07:39] VITALS: BP 151/75; PULSE 97; RESP 18; TEMP 98.1
--- NOTE | 2020-12-09 07:57 | P.PN ---
Subjective Progress Note Date: 12/09/20 This is a 50-year-old lady with a history of chronic lower back pain more on the left side than the right side with radiation to the knee on the left side without paresthesia. The patient had left greater trochanter bursa steroid injection which helped by limiting the location of her pain only to the lower back and hip and by stopping it from going to the left knee level. The pain is constant however it exacerbates once every 2 months as she states and when it happens she is forced to take time off work for at least 5 days. The patient takes half a pill of [place] a day as she states only when needed. Patient denies new-onset weakness, bowel/bladder incontinence, or any other signs or symptoms of cauda equina syndrome. There are no signs of acute intoxication, and no indications of medication diversion or overuse. In addition to above, 13-point review of systems is also negative for chest pain, shortness of breath, changes in vision, changes in hearing, new onset weakness, abdominal pain, diarrhea, extreme fatigue, malaise, fever, skin changes, homicidal or suicidal ideation, or bowel or bladder incontinence. Vital Signs: Reviewed in EMR Gen: AAOx3, NAD HEENT: PERRLA,hearing grossly normal Pulm: resp unlabored Neck: supple, trachea midline Neuro exam of the lower extremities: Normal in the lower extremities bilaterally Straight leg raising test: Negative Ranjit's test: Negative on the left side Range of motion of the lumbar spine: Facet loading test: Positive on the lumbar area Tenderness in the paravertebral musculature: Positive on the lumbar area Possible tenderness around the left sacroiliac joint Neuro: CN II-XII grossly intact, Imaging: Reviewed in EMR/chart Assessment: Lumbar spondylosis without myelopathy Plan: 1. Explanation: When patients on opioids, opioid and psychological risk scores were reviewed. Diagnoses, prognoses, and multiple treatment options including but not limited to physical therapy, interventional therapies, adjuvant medical therapies, narcotic medication therapies, and surgery were discussed with the patient and all questions were answered to the patient's satisfaction. 2. Opioid agreement:When patients are prescribed opoids through our clinic, opioid agreement is signed with the patient and the patient is warned not to use opioids while driving or before driving and not to combine opioids with benzodiazepines or alcohol. 3. Counseling: When patient is smoking or obese, the patient was counseled extensively on SMOKING CESSATION, BODY MASS INDEX, EXERCISE. Specifically, the patient was instructed regarding the importance of smoking cessation, obesity, and exercise in the context of both chronic pain and overall health. 4. Procedures: The patient may benefit from a diagnostic lumbar medial branch block at the L4 5 and L5-S1 levels bilaterally. Of note her pain is more intense on the left side than the right side. The patient is intact neurologically in the lower extremities. The physical exam clearly points to the diagnosis of lumbar spondylosis due to facet arthropathy. If the patient responds favorably to the diagnostic block then we can proceed with lumbar medial branch RFA in the future to prolong the benefit of the block. 5. Consultations: None 6. Investigations: None 7. Medications: The patient seems [place] from her primary care physician. 8. Disposition: Return to clinic for the above-mentioned procedure as soon as possible 9. Maps were reviewed and were appropriate. Objective - Vital Signs Vital signs: Vital Signs Temp 98.1 F 12/09/20 07:33 Pulse 97 12/09/20 07:33 Resp 18 12/09/20 07:33 BP 151/75 12/09/20 07:33 Pulse Ox 96 12/09/20 07:33 Intake & Output 12/08/20 12/09/20 12/09/20 18:59 06:59 18:59 Weight 86.183 kg
== END ==
LOC: PNWHC3 07:21
PROVIDERS: ATTEND Anesthesiology
DX: M47.816 Spondylosis without myelopathy or radiculopathy, lumbar region (principal); F17.200 Nicotine dependence, unspecified, uncomplicated; Z88.0 Allergy status to penicillin; Z88.5 Allergy status to narcotic agent; Z88.2 Allergy status to sulfonamides; Z88.8 Allergy status to other drugs, medicaments and biological substances
CPT/HCPCS: 99211

== ENCOUNTER 2021-03-28 06:49 | Day surgery (SDC) | payer BC ==
[2021-03-24 13:32] VITALS: BMI 31.9
[2021-03-28 07:12] VITALS: BP 166/83; PULSE 96; RESP 18; TEMP 97.3
== END 2021-03-28 07:30 | disposition home or self-care (01) ==
LOC: ORPAIN 06:49
PROVIDERS: ATTEND Anesthesiology
DX: M51.26 Other intervertebral disc displacement, lumbar region (principal); Z88.5 Allergy status to narcotic agent; Z88.0 Allergy status to penicillin; I47.1 Supraventricular tachycardia; Z53.8 Procedure and treatment not carried out for other reasons

== ENCOUNTER → 2024-09-12 | Outpatient (CLI) | payer BC | END | disposition home or self-care (01) | LOC: RADMAMWWP 14:51 | PROVIDERS: ATTEND Family Medicine | DX: Z53.9 Procedure and treatment not carried out, unspecified reason (principal) ==

== ENCOUNTER → 2024-09-18 | Outpatient (CLI) | payer BC ==
--- NOTE | 2024-09-18 13:35 | MM ---
Reason for Exam: Additional evaluation requested from abnormal screening. Last screening mammogram was performed less than 1 month ago. Patient History: Menarche at age 10. First Full-Term at age 18. Postmenopausal. Mother had breast cancer, age 60. Risk Values: Bell 5 year model risk: 2.3%. NCI Lifetime model risk: 16.3%. Prior Study Comparison: 02/05/2011 Left Diagnostic Mammogram, [facility]. 08/03/2011 Bilateral Diagnostic Mammogram, [facility]. 08/25/2024 Bilateral Screening Mammogram, [facility] . Tissue Density: Left: The breasts are heterogeneously dense, which may obscure small masses. Findings: Analyzed By CAD. On magnification views, there are grouped heterogeneous calcifications posterior upper outer quadrant left breast. Tissue sampling recommended. Other calcifications include oil cyst calcifications and a few scattered round/punctate calcifications. A couple areas of asymmetric density posterior outer aspect of the left breast on the CC view do not persist on the magnification view. Overall Assessment: Suspicious, BI-RAD 4 Management: Stereotactic Core Biopsy of the left breast. Results were given to the patient verbally at the time of exam. [facility], , 09/18/2024 1:32 PM. Electronically signed and approved by: Sujit Alcazar M.D. Radiologist
== END | disposition home or self-care (01) ==
LOC: RADMAMWWP 12:42
PROVIDERS: ATTEND Family Medicine
DX: R92.8 Other abnormal and inconclusive findings on diagnostic imaging of breast (principal); R92.332 Mammographic heterogeneous density, left breast; Z78.0 Asymptomatic menopausal state; Z80.3 Family history of malignant neoplasm of breast
CPT/HCPCS: 77061; 77065

== ENCOUNTER → 2024-10-09 | Day surgery (SDC) | payer BC ==
--- NOTE | 2024-10-23 14:24 | MM ---
Risk Values: Bell 5 year model risk: 2.3%. NCI Lifetime model risk: 16.3%. Prior Study Comparison: 08/03/2011 Bilateral Diagnostic Mammogram, [facility]. 08/25/2024 Bilateral Screening Mammogram, [facility] . 09/18/2024 Left MG 3D diag mammo w/cad LT, [facility]. Pathology Description: Marker Left Behind. Specimen Radiograph. Calcium Found: Yes Approach: CC FA Needle Type: Eviva Cores: 7 Skin Nicks: 1 Gauge: 9 no problems The procedure of stereotactic guided core biopsy was explained to the patient. Benefits, alternatives, and risks were discussed. An informed consent was then obtained. The shortness pathway for biopsy was chosen. Shortness pathway was superior approach. A vacuum assisted biopsy gun was used to obtain multiple core samples. The patient tolerated the procedure well without any immediate complication. The patient was kept in the radiology department for short stay after the procedure and then discharged home in stable condition. Targeted calcifications are identified in specimen mammogram. Post biopsy mammogram performed shows the clip to appear in satisfactory position relative to the targeted area of concern on the preprocedure images. Impression: Successful, Uncomplicated Stereotactic Guided Core Biopsy Of Area Of Concern In The left Breast. [facility], , 10/09/2024 10:21 AM. Pathology Results: Result: Benign, Fibrocystic change. Pathology and radiology were reviewed. Findings are concordant. LEFT BREAST, CORE BIOPSY: Benign breast with fibrocystic changes including calcifications. Overall Assessment: Benign Management: Diagnostic Mammogram of the left breast in 6 months. Electronically signed and approved by: Te Vergara DO
== END ==
LOC: RADMAMWWP 07:33
PROVIDERS: ATTEND Family Medicine
DX: R92.8 Other abnormal and inconclusive findings on diagnostic imaging of breast (principal)
CPT/HCPCS: 88305; 19081; A4648